=== PATIENT | male | born 1955 ===

== ENCOUNTER 2020-02-02 05:31 | Emergency (ER) | payer OTHER ==
--- OUTSIDE RECORDS SUMMARY | 2020-02-02 05:34 | XMS REPORT | Continuity of Care Document ---
:1955 Author Organization [facility] [place] Care Team Providers Name Role Phone [facility] [place] Unavailable Un available Problems Problem Status Onset Classification Date Comments [facility] e Date Reported Z01.810, R07.20 Active 05/22/19 19 [facility] M79.602 - PAIN IN Active 07/20/19 [facility] LEFT ARM 18 [facility] Hyperglycemia Resolved Problem 01/24/2020 Me dical (disorder) Group, [facility], [facility] [place] Hypertensive Active Problem 01/24/2020 Med ical disorder, systemic G roup, arterial [facility] (disorder) [facility] [place] Hyperthyroidism Resolved Problem 01/24/2020 Medical (disorder) Group, [facility], [facility] [place],[facility] Migraine Active Problem 01/24/2020 Medica l (disorder) Group, [facility] [place] Seasonal allergic Resolved Problem 01/24/2020 H Medical rhinitis Group, (disorder) [facility] [place] Diabetes mellitus Active Problem 01/24/2020 M H Medical (disorder) Group,[facility] [place] Medications Medication Details Route Status Patient Ordering Order Source Instructions Provider Date Fluticasone 2 spray, Active propionate 0.05 NASAL, 020 Medical MG/ACTUAT Metered Daily, Group Dose Nasal Addison SHAKE LIQUID., # 48 gm, 0 Refill(s), Pharmacy: [facility] #[id number], 177.8, cm, 01/18/20 8:33:00 CDT, Height, 84.545, kg, 01/18/20 8:43:00 CDT, Weight atorvastatin 10 mg See Active oral tablet Instruction 020 Medical s, 1 tab PO Group Bedtime, # 90 tab, 1 Refill(s), [id number], 177.8, cm, 01/18/20 8:33:00 CDT, Height, 84.545, kg, 01/18/20 8:43:00 CDT, Weight Fluticasone 2 spray, No Longer MH propionate 0.05 NASAL, Active 020 Medical MG/ACTUAT Metered Daily, in Grou p Dose Nasal Addison each [Flonase] nostril, # 16 gm, 1 Refill(s), [id number], 177.8, cm, 01/18/20 8:33:00 CDT, Height, 84.545, kg, 01/18/20 8:43:00 CDT, Weight Metformin = 1 tab, Active MH hydrochloride 500 PO, Daily, 020 Med ical MG Oral Tablet # 90 tab, 1 Group Refill(s), Pharmacy: [facility] #[id number], 177.8, cm, 01/18/20 8:33:00 CDT, Height, 84.545, kg, 01/18/20 8:43:00 CDT, Weight tamsulosin 0.4 mg = 1 cap, Active MH oral capsule PO, Daily, 020 Medical # 90 cap, 1 Group Refill(s), Pharmacy: [facility] #[id number], 177.8, cm, 01/18/20 8:33:00 CDT, Height, 84.545, kg, 01/18/20 8:43:00 CDT, Weight atorvastatin 10 mg See Active MH oral tablet Instruction 020 Medical s, 1 tab PO Group Bedtime, # 90 tab, 1 Refill(s), Pharmacy: [facility] #[id number], 177.8, cm, 09/21/19 13:26:00 CDT, Height, 84.545, kg, 09/21/19 13:28:00 CDT, Weight Metformin = 1 tab, Active MH hydrochloride 500 PO, 020 Medica l MG Oral Tablet BID-Meals, Group with meals, # 180 tab, 1 Refill(s), Pharmacy: [facility] #[id number], 177.8, cm, 09/21/19 13:26:00 CDT, Height, 84.545, kg, 09/21/19 13:28:00 CDT, Weight tamsulosin 0.4 mg = 1 cap, Active oral capsule PO, Daily, 020 Medical # 90 cap, 1 Group Refill(s), Pharmacy: [facility] #[id number], 177.8, cm, 09/21/19 13:26:00 CDT, Height, 84.545, kg, 09/21/19 13:28:00 CDT, Weight atorvastatin 10 mg See Active oral tablet Instruction 020 Medical s, 1 tab PO Group Bedtime, # 30 tab, 0 Refill(s), Pharmacy: [facility] #[id number] tamsulosin 0.4 mg = 1 cap, Active oral capsule PO, Daily, 019 Medical # 90 cap, 1 Group Refill(s), [id number] Metformin = 1 tab, Active MH hydrochloride 500 PO, 019 Medica l MG Oral Tablet BID-Meals, Group with meals, # 180 tab, 1 Refill(s), [id number] Fluticasone 2 spray, Active propionate 0.05 NASAL, 019 Medical MG/ACTUAT Metered Daily, in Grou p Dose Nasal Addison each [Flonase] nostril, # 16 gm, 1 Refill(s), [id number] atorvastatin 10 mg 10 mg = 1 Active oral tablet tab, PO, 019 Medical Bedtime, # Group 90 tab, 1 Refill(s), [id number] Amoxicillin 875 MG 875 mg = 1 Active MH / Clavulanate 125 tab, PO, 019 Medic al MG Oral Tablet BID, X 10 Group [Augmentin 875-mg] day, # 20 tab, 0 Refill(s), [id number] cefdinir 300 MG 300 mg = 1 Active MH Oral Capsule cap, PO, 019 Medical [Omnicef] Q12H, X 7 Group day, # 14 cap, 0 Refill(s), [id number] tamsulosin 0.4 mg = 1 cap, Active MH oral capsule PO, Daily, 019 Medical # 90 Group unknown unit, Pharmacy: [facility] 25984 Sulfamethoxazole 1 tab, PO, Active MH 800 MG / BID, start 019 Medical Trimethoprim 160 day prior Group MG Oral Tablet to [Bactrim] procedure, X 3 day, # 6 tab, 0 Refill(s), [facility] Ciprofloxacin 500 500 mg = 1 Active MH MG Oral Tablet tab, PO, 019 Medical [Cipro] Q12H, start Group day prior to procedure, X 3 day, # 6 tab, 0 Refill(s), [facility] finasteride 5 mg 5 mg = 1 Active MH oral tablet tab, PO, 019 Medical Daily, 0 Group Refill(s) tizanidine 2 mg 4 mg = 2 No Longer MH oral tablet tab, PO, Active 019 Medical Q8H, 0 Group Refill(s) naproxen 500 mg 500 mg = 1 Active MH oral tablet tab, PO, 019 Medical BID, 0 Group Refill(s) Metformin = 1 tab, Active MH hydrochloride 500 PO, 019 Medica l MG Oral Tablet BID-Meals, Group must follow up prior to further refills, # 180 tab, 0 Refill(s), [facility] atorvastatin 10 mg 10 mg = 1 Active MH oral tablet tab, PO, 018 Medical Bedtime, # Group 90 tab, 1 Refill(s), Pharmacy: [facility] 63547 tamsulosin 0.4 mg 0.4 mg = 1 Active oral capsule cap, PO, 018 Medical Daily, # 90 Group cap, 1 Refill(s), Pharmacy: [facility] 67980 Metformin 500 mg = 1 No Longer MH hydrochloride 500 tab, PO, Active 018 Medic al MG Oral Tablet BID-Meals, Group # 180 tab, 1 Refill(s), [facility] Depo-Medrol 40 mg, Inactive Route: IM, 018 Medical Drug form: Group SUSP, ONCE, Dosing Weight 88.636, kg, Start date: 12/12/17 14:10:00 CDT, Stop date: 12/12/17 14:10:00 CDT Fluticasone 2 spray, Active propionate 0.05 NASAL, 018 Medical MG/ACTUAT Metered Daily, in Grou p Dose Nasal Addison each [Flonase] nostril, # 16 gm, 1 Refill(s) tizanidine 2 mg 2 mg = 1 Active oral capsule cap, PO, 018 Medical Q8H, PRN Group for muscle spasms, # 90 cap, 0 Refill(s), [facility] tamsulosin 0.4 mg 0.4 mg = 1 Active oral capsule cap, PO, 018 Medical Daily, # 90 Group cap, 1 Refill(s), [facility] atorvastatin 10 mg 10 mg = 1 Active oral tablet tab, PO, 018 Medical Bedtime, # Group 90 tab, 1 Refill(s), [facility] naproxen 500 mg 500 mg = 1 Active oral enteric tab, PO, 018 Medical coated BID, PRN Group delayed-release Pain, X 15 tablet day, # 30 tab, 0 Refill(s), [facility] [address] Allergies, Adverse Reactions, Alerts Substance Category Reaction Severity Reaction Status Date Comments S ource type Reported No Known Assertion Drug Medication allergy Medic al Allergies Group NKFA Assertion Food Active allergy Medical Group Immunizations Immunization Date Site Status Last Comments Source Given Updated influenza virus Right completed [facility] Result Co mment: [facility]#[id number] Medical vaccine, 0 Deltoid PT REC'D VACCI NE, D/C POST 15 MIN WAIT WITHOUT ISSUES/REACTIONS Group inactivated<sup>1 </sup> influenza virus Left completed [facility] Result [facility] edical vaccine, 6 Deltoid Comment: Group, inactivated<sup>1 [id number] OP[facility] </sup> -88 [facility] diphtheria/pertus Right completed [facility] Result Medical sis, acel/tetanus 6 Deltoid Comment: Gr oup,MH adult<sup>2</sup> [facility][note 3]#[id number] OPID 0-88 [facility], [facility] influenza virus Left completed [facility] Result [facility] edical vaccine, 6 Deltoid Comment: Group inactivated<sup>2 [id number] </sup> -88 diphtheria/pertus Right completed [facility] Result Medical sis, acel/tetanus 6 Deltoid Comment: Gr oup adult<sup>3</sup> [facility][note 3]#[id number] Results Order Results Value Reference Date Interpretation Comments Source Name Range URINE POC UA Color Yellow Yellow AND *NA* 019 Medical STOOL (01/18/19 10:38 AM) Grou p URINE POC UA Clear Clear AND Turbidity *NA* 019 Medical STOOL (01/18/19 10:38 AM) Grou p URINE POC UA SG >=1.030 <=1.030 AND *ABN* 019 Medical STOOL (01/18/19 10:38 AM) Grou p URINE POC UA pH 5.5 5.0 - 8.0 AND 019 Medical STOOL Group URINE POC UA Prot Negative Negative AND mg/dL mg/dL 019 Medical STOOL Group URINE POC UA Glu Negative Negative AND mg/dL mg/dL 019 Medical STOOL Group URINE POC UA Ket Negative Negative AND mg/dL mg/dL 019 Medical STOOL Group URINE POC UA Bili Negative Negative AND *NA* 019 Medical STOOL (01/18/19 10:38 AM) Grou p URINE POC UA Bld Negative Negative AND *NA* 019 Medical STOOL (01/18/19 10:38 AM) Grou p URINE POC UA Uro 0.2 0.1 - 1.0 MH AND 019 Medical STOOL Group URINE POC UA Nit Negative Negative MH AND *NA* 019 Medical STOOL (01/18/19 10:38 AM) Grou p URINE POC UA Negative Negative MH AND LeukEst *NA* 019 Medical STOOL (01/18/19 10:38 AM) Grou p URINE POC UA pH 6.5 5.0 - 8.0 AND 019 Medical STOOL Group URINE POC UA Prot Negative Negative MH AND mg/dL mg/dL 019 Medical STOOL Group URINE POC UA Glu Negative Negative MH AND mg/dL mg/dL 019 Medical STOOL Group URINE POC UA Ket Negative Negative AND mg/dL mg/dL 019 Medical STOOL Group URINE POC UA Bili Negative Negative AND *NA* 019 Medical STOOL (07/17/18 9:27 AM) Group URINE POC UA Clear Clear AND Turbidity *NA* 019 Medical STOOL (07/17/18 9:27 AM) Group URINE POC UA Color Yellow Yellow AND *NA* 019 Medical STOOL (07/17/18 9:27 AM) Group URINE POC UA SG 1.015 <=1.030 AND 019 Medical STOOL Group URINE POC UA Bld Negative Negative AND *NA* 019 Medical STOOL (07/17/18 9:27 AM) Group URINE POC UA Uro 0.2 0.1 - 1.0 AND 019 Medical STOOL Group URINE POC UA Nit Negative Negative AND *NA* 019 Medical STOOL (07/17/18 9:27 AM) Group URINE POC UA Negative Negative MH AND LeukEst *NA* 019 Medical STOOL (07/17/18 9:27 AM) Group URINE POC UA Nit Negative Negative AND *NA* 019 Medical STOOL (05/01/18 10:22 AM) Group URINE POC UA Bld Negative Negative AND *NA* 019 Medical STOOL (05/01/18 10:22 AM) Group URINE POC UA Uro 0.2 0.1 - 1.0 MH AND 019 Medical STOOL Group URINE POC UA Ket Negative Negative MH AND mg/dL mg/dL 019 Medical STOOL Group URINE POC UA Bili Negative Negative MH AND *NA* 019 Medical STOOL (05/01/18 10:22 AM) Group URINE POC UA Negative Negative MH AND LeukEst *NA* 019 Medical STOOL (05/01/18 10:22 AM) Group URINE POC UA Clear Clear MH AND Turbidity *NA* 019 Medical STOOL (05/01/18 10:22 AM) Group URINE POC UA SG 1.015 <=1.030 MH AND 019 Medical STOOL Group URINE POC UA Color Yellow Yellow MH AND *NA* 019 Medical STOOL (05/01/18 10:22 AM) Group URINE POC UA Glu Negative Negative MH AND mg/dL mg/dL 019 Medical STOOL Group URINE POC UA Prot Negative Negative MH AND mg/dL mg/dL 019 Medical STOOL Group URINE POC UA pH 7.5 5.0 - 8.0 AND 019 Medical STOOL Group Pathology Reports No Data Provided for This Section Diagnostic Reports Report Value Date Source Prostate w/wo STUDY: MR pelvis with and without contra st (VanatecaCAD/UroNAV). 05/11/2018 VALE Clark contrast MRI COMPARISON: None. [place] HISTORY: ELEVATED PSA - EL EVATED PSA. No recent biopsy. Prior biopsy was 3 years ago. TECHNIQUE: Multiplanar multi sequential MR images of the pelvis were obtained before and after intravenous contrast administration. Images are analyzed and interpreted using [employer] for Prostate advanced visualization and analysis software. 18 cc Dot arem. FINDINGS: Bones: No abnormal marrow si gnal or marrow enhancement. Bilateral old healed pubic rami fractures. Gastrointestinal tract: Unremarkable. Intact ant erior rectal wall. Adenopathy: None. Fluid: None. Inflammatory changes: None. Urinary bladder: Normal. Inc identally noted is a bilobed enhancing soft tissue nodule along the right anterolateral urinary bladder measuring 18 x 9 mm (301; 23). Urethra: Normal. Seminal vesicles: Normal. Prostate: Enlarged and measures 5.9 x 5.5 x 7.6 cm. Volume is 1 30 mL. Enlarged central gland with heterogeneous T2 and nodular signal suggestive benign prostatic hyperplasia. Diminished volume of the per ipheral zone with homogeneous hyperintense T2 signal. 2.2 x 1.4 x 1.5 cm area with diffusion restriction in the left posterior central gland at the mid (axial images 15-18). No definite T2 correlate is seen. 8 x 4 mm area with diffusion restriction in the anterior central gland at the base (axial image 17). No definite T2 correlate is seen. 1.0 x 0.7 cm area with diffu mica restriction in the left central gland at the mid gland/apex (axial images 10 and 11). No definite T2 correlate is seen. 1.7 x 1.2 x 1.1 cm area with diffusion restriction in the left anterior central gland at the base/mid gland (axial images 14-16). No definite T2 correlate is seen. Capsule: Intact. Neurovascular bundle: Unremarkable. IMPRESSION: Benign prostatic hyperplasia. Multiple suspicious areas in the prostate gland as described above. Incidentally noted indetermi neyda 18 mm bilobed soft tissue nodule in the anterior to the urinary bladder. May represent an enlarged lymph node. This nodule may be amenable to percutaneous biopsy if tissue sampling if desired. PIRADS: 4. Consider biopsy. PIRADSTM v2 assessment uses a 5 point scale based on the likelihood (probability) that a combination of mpMRI findings on T2W, DWI, and DCE correlates with the presence of a clinically significant cancer for each lesion in the prostate gland. PIRADSTM v2 ASSESSMENT CATEGORIES: PIRADS 1 Very low (clinical ly significant cancer is highly unlikely to be present). PIRADS 2 Low (clinically significant cancer is unlikely to be present). PIRADS 3 Intermediate (the presence of clinically significant cancer is equivocal). PIRADS 4 High (clinically significant cancer is likely to be present). PIRADS 5 Very high (clinica lly significant cancer is highly likely to be present). NOTE: Assignment of a PIRADS TM v2 Assessment Category should be based on mpMRI findings only and should not incorporate other factors such as serum prostate specific antigen (PSA), digital rectal exam, clinical history, or choice of treatment. Although biopsy should be considered for PIRADS 4 or 5, but not for PIRADS 1 or 2, PIRADSTM v2 does not include recommendations for management, as these must ta ke into account other factor s besides the MRI findings, including laboratory/clinical history and local preferences, expertise and standards of care. Thus, for findings with PIRADS Assessment Category 2 or 3, biopsy may or may not be appropriate, depending on factors other than mpMRI alone. Shoulder series DX EXAM: Humerus 2 views DX, Shoulder series DX 07/19/2017 [facility] HISTORY: M79.602 Pain in left arm - M79.602 Pain in left arm COMPARISON: None 3 views of the left shoulder. AP and lateral views of the left humerus. IMPRESSION: There appears to be a nondis placed fracture of the distal clavicle which is age indeterminate. No focal osseous lesion or dislocation. Humerus 2 views DX EXAM: Humerus 2 views DX, Shoulder series DX 07/19/2017 [facility] HISTORY: M79.602 Pain in left arm - M79.602 Pain in left arm COMPARISON: None 3 views of the left shoulder. AP and lateral views of the left humerus. IMPRESSION: There appears to be a nondis placed fracture of the distal clavicle which is age indeterminate. No focal osseous lesion or dislocation. Consultation Notes No Data Provided for This Section Discharge Summaries No Data Provided for This Section History and Physicals No Data Provided for This Section Vital Signs Vital Sign Value Date Comments Source Height 177.8 cm 01/18/2020 Medical Grou p Systolic (mm Hg) 142 01/18/2020 Medical Group Diastolic (mm Hg) 84 01/18/2020 Medical Group Heart Rate 80 01/18/2020 Medical Grou p Respitory Rate 16 01/18/2020 Medical Gr oup Weight 84.545 01/18/2020 Medical Grou p BMI Calculated 26.74 01/18/2020 Medical Gr oup Respitory Rate 16 09/21/2019 Medical Gr oup Height 177.8 cm 09/21/2019 Medical Grou p Systolic (mm Hg) 121 09/21/2019 Medical Group Diastolic (mm Hg) 74 09/21/2019 Medical Group Heart Rate 63 09/21/2019 Medical Grou p Temperature Oral (F) 97.9 F 09/21/2019 [facility] Group Weight 84.545 09/21/2019 Medical Grou p BMI Calculated 26.74 09/21/2019 Medical Gr oup Systolic (mm Hg) 131 01/18/2019 Medical Group Diastolic (mm Hg) 80 01/18/2019 Medical Group Heart Rate 71 01/18/2019 Medical Grou p Height 177.8 cm 01/18/2019 Medical Grou p Weight 85 01/18/2019 Medical Grou p BMI Calculated 26.89 01/18/2019 Medical Gr oup Systolic (mm Hg) 134 12/04/2018 Medical Group Diastolic (mm Hg) 84 12/04/2018 Medical Group Heart Rate 93 12/04/2018 Medical Grou p Respitory Rate 16 12/04/2018 Medical Gr oup Temperature Oral (F) 98.5 F 12/04/2018 [facility] Group Height 177.8 cm 12/04/2018 Medical Grou p Weight 85.909 12/04/2018 Medical Grou p BMI Calculated 27.18 12/04/2018 Medical Gr oup Systolic (mm Hg) 144 11/29/2018 Medical Group Diastolic (mm Hg) 79 11/29/2018 Medical Group Heart Rate 84 11/29/2018 Medical Grou p Respitory Rate 14 11/29/2018 Medical Gr oup Temperature Oral (F) 98.1 F 11/29/2018 [facility] Group Height 177.8 cm 11/29/2018 Medical Grou p Weight 85.199 11/29/2018 Medical Grou p BMI Calculated 26.95 11/29/2018 Medical Gr oup Heart Rate 84 07/17/2018 Medical Grou p Systolic (mm Hg) 134 07/17/2018 Medical Group Diastolic (mm Hg) 89 07/17/2018 Medical Group Weight 86.534 07/17/2018 Medical Grou p BMI Calculated 27.37 07/17/2018 Medical Gr oup Height 177.8 cm 07/17/2018 Medical Grou p Weight 87.273 05/22/2018 Medical Grou p Systolic (mm Hg) 138 05/22/2018 Medical Group Diastolic (mm Hg) 89 05/22/2018 Medical Group Weight 87.273 05/01/2018 [facility] Medical Grou p Systolic (mm Hg) 143 05/01/2018 Medical Group Diastolic (mm Hg) 90 05/01/2018 Medical Group Systolic (mm Hg) 134 01/13/2018 Medical Group Diastolic (mm Hg) 80 01/13/2018 Medical Group Height 177.8 cm 01/13/2018 Medical Grou p Respitory Rate 16 01/13/2018 Medical Gr oup Heart Rate 73 01/13/2018 Medical Grou p Temperature Oral (F) 98.5 F 01/13/2018 Medi [facility]ais Group Systolic (mm Hg) 159 01/13/2018 Medical Group Diastolic (mm Hg) 92 01/13/2018 Medical Group BMI Calculated 27.46 01/13/2018 Medical Gr oup Weight 86.818 01/13/2018 Medical Grou p Weight 88.636 12/12/2017 Medical Grou p Height 177.8 cm 12/12/2017 Medical Grou p BMI Calculated 28.04 12/12/2017 Medical Gr oup Temperature Oral (F) 98.1 F 12/12/2017 Medi irais Group Respitory Rate 16 12/12/2017 Medical Gr oup Heart Rate 92 12/12/2017 Medical Grou p Systolic (mm Hg) 148 12/12/2017 Medical Group Diastolic (mm Hg) 85 12/12/2017 Medical Group Weight 90 07/14/2017 Medical Grou p BMI Calculated 28.47 07/14/2017 Medical Gr oup Temperature Oral (F) 97.9 F 07/14/2017 Medi irais Group Systolic (mm Hg) 143 07/14/2017 Medical Group Diastolic (mm Hg) 80 07/14/2017 Medical Group Heart Rate 81 07/14/2017 Medical Grou p Height 177.8 cm 07/14/2017 Medical Grou p Respitory Rate 16 07/14/2017 Medical Gr oup Encounters Location Location Encounter Encounter Reason Attending ADM DC Stat us Source Details Type Number For Provider Date Date Visit Outpatient [id number] [facility] 06/02 [facility] [id number] MAX [facility] 11/10 [facility] Out[facility] [id number] MAX [facility] 11/24 [facility] [id number] [facility] 12/27 [facility] [id number] MAX [facility] 04/04 [facility] [id number] Max Hand 04/04 04/04 MH Primary Pre-Reg Medical Care [facility] Outpatient [id number] MAX HAND 07/14 [facility]patient [id number] Max Hand 07/14 07/15 MH Primary Medical Care [facility] Outpt Diag [id number] Max [facility] 07/19 07/20 MH [facility] Out[facility] [id number] MAX HAND 09/19 [facility] [id number] Max [facility] 09/19 09/19 MH Primary Pre-Reg Medical Care [facility] Outpatient [id number] REJI 12/12 [id number] [facility] 12/12 12/13 MH Primary Medical Care [facility] Outpatient [id number] MAX [facility] 01/13 Activ e [facility] Outpatient [id number] Max [facility] 01/13 01/14 [id number] 04/05 04/07 MH Primary Message Medical Care [facility] Outpatient [id number] ABELINO [place] 05/01 [facility] [id number] Abelino [place] 05/01 05/02 MH Urology [facility] Outpt Diag [id number] Abelino [place] 05/11 05/12 MH [facility] Outpatient Services [facility] [place] Outpatient [id number] ABELINO [place] 05/22 [facility] [id number] Abelino [place] 05/22 05/23 MH Urology [facility] Outpatient [id number] [place] 05/22 05/23 [facility] [place] [facility] [place] [facility] Outpatient [id number] ABELINO [place] 06/30 [facility]i [facility] Ambulatory [id number] Abelino [place] 06/30 06/30 Urology Pre-Reg [facility] Outpatient [id number] Abelino [place] 07/03 Acti ve [facility] MG Outpatient [id number] Abelino [place] 07/03 07/04 Urology [facility] Outpatient [id number] Abelino [place] 07/17 Acti ve [facility] Outpatient [id number] 07/17 [facility] [id number] Abelino [place] 07/17 07/18 [facility] [id number] 10/03 10/05 Primary Message Medical Care [facility] Outpatient [id number] Stef Zuniga 11/29 [facility] [id number] Stef Zuniga 11/29 11/30 [facility] [id number] 11/29 12/01 Primary Message Medical Care [facility] Outpatient [id number] Max Hand 12/04 Activ e [facility] Outpatient [id number] Max Hand 12/04 12/05 MH Primary Medical Care [facility] Outpatient [id number] Abelino [place] 01/18 Acti ve [facility] [id number] Abelino [place] 01/18 01/19 [facility] [id number] 08/26 08/27 MH Primary Visit Medical Care [facility] Outpatient [id number] Max Hand 09/20 Activ [facility]patient [id number] Max Hand 09/20 09/21 MH Primary Medical Care [facility] Outpatient [id number] Max [facility] 01/17 [facility] [id number] Max [facility] 01/17 01/18 MH Primary Medical Care [facility] [place] [facility] [id number] 01/17 01/19 Primary Message Medical Care [facility] Outpatient [id number] [facility] 01/21 [facility] Ambulatory [id number] [facility] 01/21 01/21 Primary Pre-Reg Medical Care Group [facility] Outpatient [id number] [facility] 07/18 Activ e [facility] [place] Procedures Procedure Code Date Perfomer [place] [address] 01/18/2019 Medical post-voiding residual Obed up urine and/or bladder capacity by ultrasound, non-imaging Cystourethroscopy 51485 07/17/2018 [facility] (separate procedure) Grou p Cystoscopy [id number] 07/17/2018 Medical Group Assessment and Plan No Data Provided for This Section Plan of Care No Data Provided for This Section Social History Social History Date Source Social History TypeResponse 12/10/[address] [facility] Substance Abuse Use: None. Exercise Exercise duration: 0. Alcohol Current, Type Beer. Frequency: 1-2 times per week. Previou s treatment: None. Smoking Status Never smoker; Exposure to Tobacco Smoke None; Cigarette Smoking Last 365 Days No; Reg Smoking Cessation Counseling No entered on: 05/22/18 Social History TypeResponse 12/10/2015 [facility] Substance Abuse Use: None. Exercise Exercise duration: 0. Alcohol Current, Type Beer. Frequency: 1-2 times per week. Previou s treatment: None. Smoking Status Never smoker; Exposure to Tobacco Smoke None; Cigarette Smoking Last 365 Days No; Reg Smoking Cessation Counseling No entered on: 07/14/17 Social History TypeResponse 12/10/2015 [facility] Substance Abuse Use: None. Exercise Exercise duration: 0. Alcohol Current, Type Beer. Frequency: 1-2 times per week. Previou s treatment: None. Smoking Status Never smoker; Exposure to Tobacco Smoke None; Cigarette Smoking Last 365 Days No; Reg Smoking Cessation Counseling No entered on: 05/01/18 Social History TypeResponse 12/10/2015 [facility] Alcohol Current, Type Beer. Frequency: 1-2 times per week. Previou s treatment: None. Exercise Exercise duration: 0. Substance Abuse Use: None. Smoking Status Never smoker; Exposure to Tobacco Smoke None; Cigarette Smoking Last 365 Days No; Reg Smoking Cessation Counseling No entered on: 01/18/20 Family History No Data Provided for This Section Advance Directives No Data Provided for This Section Functional Status No Data Provided for This Section
--- OUTSIDE RECORDS SUMMARY | 2020-02-02 05:34 | XMS REPORT | Summary of Care ---
:1955 Author Organization [facility] Primary Care [facility] Address [address] [place] [address]- Encounter HQ Encntr_alicamden(FIN) [id number] Date(s): 01/18/20 - 01/19/20 [facility] Care [address] [address] [phone] Vital Signs No data available for this section Problem List Condition Effective Dates Status Health Status Informant Diabetes(Confirmed) Active Hyperglycemia(Confirmed) Resolved Hypertension(Confirmed) Active Hyperthyroidism(Confirmed) Resolved Migraines(Confirmed) Active Seasonal allergies(Confirmed) Resolved Allergies, Adverse Reactions, Alerts No Known Medication Allergies Substance Reaction Severity Status NKFA Active Medications fluticasone nasal 0.05 mg/inh spray 2 spray, NASAL, Daily, SHAKE LIQUID., # 48 gm, 0 Refill(s), Pharmacy: [facility] #[id number], 177.8, cm, 01/18/20 8:33:00 CDT, Height, 84.545, kg, 01/18/20 8:43:00 CDT, Weight Start Date: 01/19/20 Status: Ordered Results No data available for this section Immunizations Given and Recorded Vaccine Date Status Refusal Reason influenza virus vaccine, inactivated1 01/18/20 Given influenza virus vaccine, inactivated2 12/10/15 Given diphtheria/pertussis, acel/tetanus adult3 12/10/15 Given 1Result Comment: [facility]#[id number] PT REC'D VACCINE, D/C POST 15 MIN WAIT WITHOUT ISSUES/[id number] Comment: [id number] Comment: [facility]#[id number] Procedures Procedure Date Related Diagnosis Body Site Status Cystoscopy 07/17/18 Completed Social History Social History Type Response Alcohol Current, Type Beer. Frequen cy: 1-2 times per week. Previous treatment: None. Exercise Exercise duration: 0. Substance Abuse Use: None. Smoking Status Never smoker; Exposure to To bacco Smoke None; Cigarette Smoking Last 365 Days No; Reg Smoking Cessation Counseling No entered on: 01/18/20 Assessment and Plan No data available for this section
--- OUTSIDE RECORDS SUMMARY | 2020-02-02 05:35 | XMS REPORT | Summary of Care ---
:1955 Author Organization [facility] Primary Care [facility] Address [address] [place] [phone]- Encounter HQ Corwin(FIN) [id number] Date(s): 01/18/20 - 01/18/20 [facility] Primary Care [address] [address]- [phone] Discharge Disposition: Home or Self Care Attending Physician: Madan Kohler DO Vital Signs Most recent to oldest [Reference Range]: 1 Height 177.8 cm (01/18/20 8:33 AM) Blood Pressure [90-140/60-90 mmHg] 142/84 mmHg *HI* (01/18/20 8:33 AM) Respiratory Rate [14-20 BRMIN] 16 BRMIN (01/18/20 8:33 AM) Peripheral Pulse Rate [60-100 bpm] 80 bpm (01/18/20 8:33 AM) Weight 84.545 kg (01/18/20 8:33 AM) Body Mass Index 26.74 m2 (01/18/20 8:33 AM) Problem List Condition Effective Dates Status Health Status Informant Diabetes(Confirmed) Active Hyperglycemia(Confirmed) Resolved Hypertension(Confirmed) Active Hyperthyroidism(Confirmed) Resolved Migraines(Confirmed) Active Seasonal allergies(Confirmed) Resolved Allergies, Adverse Reactions, Alerts No Known Medication Allergies Substance Reaction Severity Status NKFA Active Medications atorvastatin 10 mg oral tablet See Instructions, 1 tab PO Bedtime, # 90 tab, 1 Refill(s), Pharmacy: [facility] #[id number], 177.8, cm, 01/18/20 8:33:00 CDT, Height, 84.545, kg, 01/18/20 8:43:00 CDT, Weight Start Date: 01/18/20 Status: OrderedFlonase 0.05 mg/inh nasal spray 2 spray, NASAL, Daily, in each nostril, # 16 gm, 1 Refill(s), Pharmacy: [facility] #[id number],177.8, cm, 01/18/20 8:33:00 CDT, Height, 84.545, kg, 01/18/20 8:43:00 CDT, Weight Start Date: 01/18/20 Stop Date: 01/19/20 Status: CompletedmetFORMIN 500 mg oral tablet = 1 tab, PO, Daily, # 90 tab, 1 Refill(s), Pharmacy: [facility] #[id number], 177.8, cm, 01/18/20 8:33:00 CDT, Height, 84.545, kg, 01/18/20 8:43:00 CDT, Weight Start Date: 01/18/20 Stop Date: 07/16/20 Status: Orderedtamsulosin 0.4 mg oral capsule = 1 cap, PO, Daily, # 90 cap, 1 Refill(s), Pharmacy: [facility] #[id number], 177.8, cm, 01/18/20 8:33:00 CDT, Height, 84.545, kg, 01/18/20 8:43:00 CDT, Weight Start Date: 01/18/20 Stop Date: 07/16/20 Status: Ordered Results No data available for this section Immunizations Given and Recorded Vaccine Date Status Refusal Reason influenza virus vaccine, inactivated1 01/18/20 Given influenza virus vaccine, inactivated2 12/10/15 Given diphtheria/pertussis, acel/tetanus adult3 12/10/15 Given 1Result Comment: [facility]#[id number] PT REC'D VACCINE, D/C POST 15 MIN WAIT WITHOUT ISSUES/[id number] Comment: [id number] Comment: [facility]#[id number] Procedures Procedure Date Related Diagnosis Body Site [...]
--- OUTSIDE RECORDS SUMMARY | 2020-02-02 05:35 | XMS REPORT | Summary of Care ---
:1955 Author Organization [facility] Primary Care [facility] Address [address] [place] [address]- Encounter HQ Encntr_alias(FIN) [id number] Date(s): 01/22/20 - 01/22/[address] [id number]- [phone] Attending Physician: Madan Kohler DO Vital Signs No data available for this section Problem List Condition Effective Dates Status Health Status Informant Diabetes(Confirmed) Active Hyperglycemia(Confirmed) Resolved Hypertension(Confirmed) Active Hyperthyroidism(Confirmed) Resolved Migraines(Confirmed) Active Seasonal allergies(Confirmed) Resolved Allergies, Adverse Reactions, Alerts No Known Medication Allergies Substance Reaction Severity Status NKFA Active Medications No data available for this section Results No data available for this section Immunizations Given and Recorded Vaccine Date Status Refusal Reason influenza virus vaccine, inactivated1 01/18/20 Given influenza virus vaccine, inactivated2 12/10/15 Given diphtheria/pertussis, acel/tetanus adult3 12/10/15 Given 1Result Comment: [facility]#[id number] PT REC'D VACCINE, D/C POST 15 MIN WAIT WITHOUT ISSUES/[id number] Comment: [id number] Comment: [facility]#[id number] Procedures Procedure Date Related Diagnosis Body Site [...]
[2020-02-02 06:07] LABS: Urine Blood 2+ (NEG); Urine Glucose NEGATIVE (NEG); Urine Protein NEGATIVE (NEG); Urine Specific Gravity 1.015 (1.005-1.030); Urine pH 5.5 (5.0-7.0)
--- NOTE | 2020-02-02 06:22 | ER ---
Nurse's Notes [facility] Name: Freida Bertrand Jr Age: 64 yrs Sex: Male : 1955 Arrival Date: 02/02/2020 Time: 05:37 Bed 5 Private MD: Diagnosis: Retention of urine Presentation: 02/01 05:43 Chief complaint: Patient states: he has not been able to urinate since midnight and is bb having a lot of discomfort has had similar symptoms in the past. Coronavirus screen: At this time, the client does not indicate any symptoms associated with coronavirus-19. Ebola Screen: No symptoms or risks identified at this time. Initial Sepsis Screen: Does the patient meet any 2 criteria? No. Patient's initial sepsis screen is negative. Does the patient have a suspected source of infection? No. Patient's initial sepsis screen is negative. Risk Assessment: Do you want to hurt yourself or someone else? Patient reports no desire to harm self or others. Onset of symptoms was February 02, 2020. 05:43 Method Of Arrival: Ambulatory bb 05:43 Acuity: DEMI 4 bb Historical: - Allergies: 05:45 No Known Allergies; bb - Home Meds: 05:45 Unable to obtain [Active]; bb - Immunization history:: Adult Immunizations up to date. - Social history:: Smoking status: Patient denies any tobacco usage or history of. Screenin:58 Abuse screen: Denies threats or abuse. Denies injuries from another. Nutritional mg2 screening: No deficits noted. Tuberculosis screening: No symptoms or risk factors identified. Fall Risk None identified. Assessment: 05:58 General: Appears in no apparent distress. comfortable, Behavior is calm, cooperative. mg2 Pain: Complains of pain in abdomen Pain currently is 10 out of 10 on a pain scale. Quality of pain is described as aching, Pain began gradually. Neuro: Level of Consciousness is awake, alert, obeys commands, Oriented to person, place, time, situation. Cardiovascular: Capillary refill < 3 seconds Patient's skin is warm and dry. Respiratory: Airway is patent Respiratory effort is even, unlabored, Respiratory pattern is regular, symmetrical. GI: No signs and/or symptoms were reported involving the gastrointestinal system. : Reports inability to void, since tonight. EENT: No signs and/or symptoms were reported regarding the EENT system. Derm: Skin is intact, is healthy with good turgor, Skin is pink, warm \T\ dry. normal. Musculoskeletal: Circulation, motion, and sensation intact. Capillary refill < 3 seconds. Vital Signs: 05:43 BP 160 / 83; Pulse 115; Resp 18 S; Temp 97.8(O); Pulse Ox 97% on R/A; Weight 85.73 kg bb (R); Height 5 ft. 10 in. (177.80 cm) (R); Pain 10/10; 05:43 Body Mass Index 27.12 (85.73 kg, 177.80 cm) bb ED Course: 05:37 Patient arrived in ED. ag3 05:45 Triage completed. bb 05:45 Arm band placed on Patient placed in an exam room, on a stretcher, on pulse oximetry. bb 05:57 Rk Ortiz, RN is Primary Nurse. mg2 05:57 No provider procedures requiring assistance completed. Bladder scan completed. 814 ml. mg2 Matt cath inserted, using sterile technique, 16 Fr., by wv, balloon inflated, returned clear yellow urine. Patient tolerated well. Patient did not have IV access during this emergency room visit. 05:59 Patient has correct armband on for positive identification. Door closed. Warm blanket mg2 given. 06:21 Fernando Little MD is Attending Physician. tw4 Administered Medications: No medications were administered Output: 06:14 Urine: 1200ml (Matt); Total: 1200ml. mg2 Outcome: 06:21 Discharge ordered by . tw4 06:32 Discharged to home ambulatory. mg2 06:32 Condition: stable 06:32 Discharge instructions given to patient, Instructed on discharge instructions, follow up and referral plans. Demonstrated understanding of instructions, follow-up care, matt catheter care 06:32 Patient left the ED. mg2 Signatures: Shelley Tavera RN RN bb Fernando Little MD MD tw4 Rk Ortiz, DEMETRIO RN mg2 Andreia Umanzor ag3
--- NOTE | 2020-02-02 06:22 | EDPHYS ---
Physician Documentation [facility] Name: Freida Bertrand Jr Age: 64 yrs Sex: Male : 1955 Arrival Date: 02/02/2020 Time: 05:37 Bed 5 Private MD: ED Physician Fernando Little HPI: 02/01 05:58 This 64 yrs old Male presents to ER via Ambulatory with complaints of Back Pain. tw4 06:00 The patient presents with abdominal pain. The symptoms do not radiate. Associated signs tw4 and symptoms: none. Modifying factors: The symptoms are alleviated by nothing, the symptoms are aggravated by nothing. Severity of pain: At its worst the pain was mild in the emergency department the pain is unchanged. The patient has not experienced similar symptoms in the past. Historical: - Allergies: 05:45 No Known Allergies; bb - Home Meds: 05:45 Unable to obtain [Active]; bb - Immunization history:: Adult Immunizations up to date. - Social history:: Smoking status: Patient denies any tobacco usage or history of. ROS: 06:00 Constitutional: Negative for fever, chills, and weight loss, Eyes: Negative for injury, tw4 pain, redness, and discharge, Cardiovascular: Negative for chest pain, palpitations, and edema, Respiratory: Negative for shortness of breath, cough, wheezing, and pleuritic chest pain. 06:00 MS/Extremity: Negative for injury and deformity, Skin: Negative for injury, rash, and discoloration, Neuro: Negative for headache, weakness, numbness, tingling, and seizure. 06:00 Abdomen/GI: Positive for abdominal pain, Negative for nausea and vomiting, nausea, vomiting, and diarrhea, nausea, vomiting, diarrhea, constipation, abdominal cramps, abdominal distension, anorexia, dysphagia, hematemesis, black/tarry stool. Exam: 06:12 Constitutional: This is a well developed, well nourished patient who is awake, alert, tw4 and in no acute distress. Head/Face: Normocephalic, atraumatic. Chest/axilla: Normal chest wall appearance and motion. Nontender with no deformity. No lesions are appreciated. Cardiovascular: Regular rate and rhythm with a normal S1 and S2. No gallops, murmurs, or rubs. Normal PMI, no JVD. No pulse deficits. Respiratory: Lungs have equal breath sounds bilaterally, clear to auscultation and percussion. No rales, rhonchi or wheezes noted. No increased work of breathing, no retractions or nasal flaring. Back: No spinal tenderness. No costovertebral tenderness. Full range of motion. Skin: Warm, dry with normal turgor. Normal color with no rashes, no lesions, and no evidence of cellulitis. MS/ Extremity: Pulses equal, no cyanosis. Neurovascular intact. Full, normal range of motion. Neuro: Awake and alert, GCS 15, oriented to person, place, time, and situation. Cranial nerves II-XII grossly intact. Motor strength 5/5 in all extremities. Sensory grossly intact. Cerebellar exam normal. Normal gait. Psych: Awake, alert, with orientation to person, place and time. Behavior, mood, and affect are within normal limits. 06:12 Abdomen/GI: Inspection: abdomen appears normal, Bowel sounds: normal. Vital Signs: 05:43 BP 160 / 83; Pulse 115; Resp 18 S; Temp 97.8(O); Pulse Ox 97% on R/A; Weight 85.73 kg bb (R); Height 5 ft. 10 in. (177.80 cm) (R); Pain 10/10; 05:43 Body Mass Index 27.12 (85.73 kg, 177.80 cm) bb MDM: 06:21 Patient medically screened. tw4 02/01 06:05 Order name: Urine Dipstick--Ancillary (enter results) ms 02/01 05:45 Order name: Ganga; Complete Time: 05:57 tw4 02/01 05:45 Order name: Urine Dipstick-Ancillary (obtain specimen); Complete Time: 05:57 tw4 Administered Medications: No medications were administered Disposition: 02/02/20 06:21 Discharged to Home. Impression: Retention of urine. - Condition is Stable. - Discharge Instructions: Acute Urinary Retention, Male. - Medication Reconciliation Form, Thank You Letter, Antibiotic Education, Prescription Opioid Use form. - Follow up: Emergency Department; When: Upon discharge from the Emergency Department; Reason: Recheck today's complaints, Continuance of care, Re-evaluation by your physician. Signatures: Dispatcher [employer] Shelley Bolton RN RN bb Fernando Little MD MD tw4 Rk Ortiz RN RN mg2 Corrections: (The following items were deleted from the chart) 06:32 06:21 02/02/2020 06:21 Discharged to Home. Impression: Retention of urine. Condition is mg2 Stable. Forms are Medication Reconciliation Form, Thank You Letter, Antibiotic Education, Prescription Opioid Use. Follow up: Emergency Department; When: Upon discharge from the Emergency Department; Reason: Recheck today's complaints, Continuance of care, Re-evaluation by your physician. tw4
[2020-02-02 06:41] VITALS: BP 160/83; TEMP 97.8; O2SAT 97
== END 2020-02-02 06:32 | disposition home or self-care (01) ==
LOC: ER 05:31
DX: R33.9 Retention of urine, unspecified (principal)
CPT/HCPCS: 51702; 81003; 99284